=== PATIENT | female | born 1980 | race African-American/Black ===

== ENCOUNTER 2018-02-22 16:18 | Emergency (ER) | payer MEDICAID ==
[~2018-02-22] VITALS: Ht 162.6 cm; Wt 81.6 kg
[~2018-02-22 16:18] MED LIST: NOR10T
[2018-02-22 16:38] VITALS: BP 149/85
[2018-02-22] MEDS ORDERED: KETOROLAC TROMETH 60MG/2ML VIAL IM ONE (17:30)
[2018-02-22] MEDS ORDERED: METHOCARBAMOL 500 MG TAB PO ONE (17:30)
[2018-02-22] MEDS ORDERED: HYDROcodone-ACET 10/325MG TAB PO ONE (18:00)
== END 2018-02-22 18:25 | disposition home or self-care (01) ==
LOC: ER 16:20
DX: M54.2 Cervicalgia (principal); M89.29 Other disorders of bone development and growth, multiple sites
CPT/HCPCS: 72125; 96372; 99284; J1885